=== PATIENT | male | born 1995 | race Caucasian/White ===

== ENCOUNTER 2018-04-11 22:34 | Emergency (ER) | payer SELFPAY, OTHER ==
[2018-04-11] MEDS: LORAZEPAM 2 MG INJ IM (23:09)
[2018-04-12] MEDS: ALPRAZOLAM 0.25 MG TAB PO (00:53)
== END 2018-04-12 01:40 | disposition home or self-care (01) ==
LOC: E/R 22:34
DX: F41.9 Anxiety disorder, unspecified (principal); R40.2142 Coma scale, eyes open, spontaneous, at arrival to emergency department; R40.2362 Coma scale, best motor response, obeys commands, at arrival to emergency department; R40.2252 Coma scale, best verbal response, oriented, at arrival to emergency department; R06.02 Shortness of breath
CPT/HCPCS: 93005; 96372; 99284-25